=== PATIENT | male | born 1960 | race Caucasian/White ===

== ENCOUNTER 2016-09-20 13:57 | Inpatient (IN) | payer OTHER ==
[2016-09-20] MEDS ORDERED: ACETAMINOPHEN 500 MG TABLET PO ONE ×2 (14:12→18:08)
[2016-09-20] MEDS ORDERED: ACETAMINOPHEN 500 MG TABLET PO STA ×2 (14:16→18:07)
[2016-09-20] MEDS ORDERED: cefTRIAXone 2 GM in SODIUM CHLORIDE 0.9% MINIBAG 100 ML IV STA (16:47)
[2016-09-20] MEDS ORDERED: POTASSIUM BICARB 25 MEQ TABLET PO STA (17:41)
[2016-09-20] MEDS ORDERED: HYDROmorphone 1 MG/ML SYRINGE IVP PRN (18:05)
[2016-09-20] MEDS ORDERED: SODIUM CHLORIDE FLUSH 0.9% 10 ML SYRINGE IVP PRN (18:05)
[2016-09-20] MEDS ORDERED: HYDROcod/ACETAM 10 MG/325 MG TABLET PO PRN (18:05)
[2016-09-20] MEDS ORDERED: ZOLPIDEM 5 MG TABLET PO PRN (18:05)
[2016-09-20] MEDS ORDERED: PROCHLORPERAZINE 10 MG/2 ML VIAL IVP PRN (18:05)
[2016-09-20] MEDS ORDERED: ONDANSETRON 4 MG/2 ML VIAL IVP PRN (18:05)
[2016-09-20] MEDS ORDERED: POTASSIUM BICARB 25 MEQ TABLET PO ONE (18:08)
[2016-09-20] MEDS ORDERED: cefTRIAXone 2 GM VIAL ONE (18:29)
[2016-09-20] MEDS ORDERED: VANCOMYCIN PER PHARMACY 1.5 GM in SODIUM CHLORIDE 0.9% 250 ML IV SCH (19:00)
[2016-09-20] MEDS ORDERED: SODIUM CHLORIDE 0.9% 1,000 ML IV ONE (19:00)
[2016-09-20] MEDS ORDERED: VANCOMYCIN INJ 2 GM in SODIUM CHLORIDE 0.9% 500 ML IV SCH (20:00)
[2016-09-20] MEDS: SODIUM CHLORIDE 0.9% 1,000 ML IV SCH (20:45)
[2016-09-20] MEDS: PIPERACILLIN/TAZOBACTAM 3.375 GM in SODIUM CHLORIDE 0.9% MINIBAG 100 ML IV SCH (20:46)
[2016-09-20] MEDS ORDERED: METOPROLOL TARTRATE 50 MG TABLET PO SCH (21:00)
[2016-09-20] MEDS ORDERED: WATER FOR INJECTION,STERILE 40 ML ONE (21:38)
[2016-09-20] MEDS: SODIUM CHLORIDE FLUSH 0.9% 10 ML SYRINGE IVP SCH (22:11)
[2016-09-20] MEDS: TOPIRAMATE 100 MG TABLET PO SCH (22:21)
[2016-09-21] MEDS: PIPERACILLIN/TAZOBACTAM 3.375 GM in SODIUM CHLORIDE 0.9% MINIBAG 100 ML IV SCH ×2 (02:03→06:17)
[2016-09-21] MEDS: ACETAMINOPHEN 325 MG TABLET PO PRN ×4 (02:03→21:39)
[2016-09-21] MEDS: SODIUM CHLORIDE FLUSH 0.9% 10 ML SYRINGE IVP SCH ×3 (06:20→21:41)
[2016-09-21] MEDS: PANTOPRAZOLE 40 MG TABLET PO SCH (06:57)
[2016-09-21] MEDS: SODIUM CHLORIDE 0.9% 1,000 ML IV SCH ×3 (07:33→21:39)
[2016-09-21] MEDS ORDERED: VANCOMYCIN INJ 1 GM, VANCOMYCIN INJ 500 MG in SODIUM CHLORIDE 0.9% 500 ML IV SCH (08:00)
[2016-09-21] MEDS: MAGNESIUM OXIDE 400 MG TABLET PO SCH (08:12)
[2016-09-21] MEDS: TOPIRAMATE 100 MG TABLET PO SCH ×2 (08:23→21:40)
[2016-09-21] MEDS ORDERED: amLODIPine 5 MG TABLET PO SCH (09:00)
[2016-09-21] MEDS ORDERED: LOSARTAN 50 MG TABLET PO SCH (09:00)
[2016-09-21] MEDS: amLODIPine 5 MG TABLET PO SCH (10:30)
[2016-09-21] MEDS: ENOXAPARIN 40 MG/0.4 ML SYRINGE SUBQ SCH (10:30)
[2016-09-21] MEDS: METOPROLOL TARTRATE 50 MG TABLET PO SCH ×2 (10:31→21:45)
[2016-09-21] MEDS: POLYETHYLENE GLYCOL 3350 17 GM PACKET PO SCH (10:31)
[2016-09-21] MEDS ORDERED: MAGNESIUM OXIDE 400 MG TABLET PO SCH (14:00)
[2016-09-21] MEDS: POTASSIUM CHLORIDE 20 MEQ TABLET PO SCH (17:04)
[2016-09-22] MEDS: HYDROcod/ACETAM 5/325 MG TABLET PO PRN ×5 (00:31→23:34)
[2016-09-22] MEDS: SODIUM CHLORIDE FLUSH 0.9% 10 ML SYRINGE IVP SCH ×3 (06:51→20:24)
[2016-09-22] MEDS: PANTOPRAZOLE 40 MG TABLET PO SCH (06:55)
[2016-09-22] MEDS: POTASSIUM CHLORIDE 20 MEQ TABLET PO SCH ×2 (08:31→16:10)
[2016-09-22] MEDS: METOPROLOL TARTRATE 50 MG TABLET PO SCH ×2 (08:32→20:23)
[2016-09-22] MEDS: MAGNESIUM OXIDE 400 MG TABLET PO SCH (08:32)
[2016-09-22] MEDS: amLODIPine 5 MG TABLET PO SCH (08:34)
[2016-09-22] MEDS: cefTRIAXone 2 GM in SODIUM CHLORIDE 0.9% MINIBAG 100 ML IV SCH (08:45)
[2016-09-22] MEDS: TOPIRAMATE 100 MG TABLET PO SCH ×2 (08:45→20:23)
[2016-09-22] MEDS: POLYETHYLENE GLYCOL 3350 17 GM PACKET PO SCH (08:48)
[2016-09-22] MEDS: ENOXAPARIN 40 MG/0.4 ML SYRINGE SUBQ SCH (08:48)
[2016-09-22] MEDS: SODIUM CHLORIDE 0.9% 1,000 ML IV SCH (09:00)
[2016-09-22] MEDS: POTASSIUM CHLOR 10 MEQ/100 ML 100 ML IV SCH ×4 (09:14→14:09)
[2016-09-23] MEDS: SODIUM CHLORIDE 0.9% 1,000 ML IV SCH ×2 (06:15→14:11)
[2016-09-23] MEDS: PANTOPRAZOLE 40 MG TABLET PO SCH (06:15)
[2016-09-23] MEDS: SODIUM CHLORIDE FLUSH 0.9% 10 ML SYRINGE IVP SCH ×2 (06:18→08:23)
[2016-09-23] MEDS: cefTRIAXone 2 GM in SODIUM CHLORIDE 0.9% MINIBAG 100 ML IV SCH (08:21)
[2016-09-23] MEDS: ENOXAPARIN 40 MG/0.4 ML SYRINGE SUBQ SCH (08:21)
[2016-09-23] MEDS: POTASSIUM CHLORIDE 20 MEQ TABLET PO SCH (08:22)
[2016-09-23] MEDS: POLYETHYLENE GLYCOL 3350 17 GM PACKET PO SCH (08:22)
[2016-09-23] MEDS: MAGNESIUM OXIDE 400 MG TABLET PO SCH (08:22)
[2016-09-23] MEDS: METOPROLOL TARTRATE 50 MG TABLET PO SCH (08:23)
[2016-09-23] MEDS: TOPIRAMATE 100 MG TABLET PO SCH (08:23)
[2016-09-23] MEDS: amLODIPine 5 MG TABLET PO SCH (08:24)
[2016-09-23] MEDS: HYDROcod/ACETAM 5/325 MG TABLET PO PRN (08:33)
[2016-09-23] MEDS ORDERED: LOSARTAN 50 MG TABLET PO SCH (09:00)
== END 2016-09-23 14:20 | disposition home or self-care (01) | DRG 872 ==
DX: A40.8 Other streptococcal sepsis (principal); L03.116 Cellulitis of left lower limb; N17.9 Acute kidney failure, unspecified; R65.20 Severe sepsis without septic shock; E87.6 Hypokalemia; E86.0 Dehydration; I95.9 Hypotension, unspecified; I10 Essential (primary) hypertension; G25.0 Essential tremor

== ENCOUNTER 2016-10-16 15:17 | Outpatient (CLI) | payer OTHER | END 2016-10-16 15:18 | disposition home or self-care (01) | DX: G47.33 Obstructive sleep apnea (adult) (pediatric) (principal) ==